=== PATIENT | male | born 1970 | race Caucasian/White ===

== ENCOUNTER 2023-08-12 12:52 | Emergency (ER) | payer BC, SELFPAY ==
[2023-08-12 12:54] VITALS: BP 140/100
[2023-08-12 14:17] VITALS: BP 143/103
[2023-08-12 14:32] VITALS: BP 143/103; BMI 31.4
[2023-08-12 14:38] LABS: % Basophils 0.5 % (0-2); % Eosinophils 1.1 % (0-6); % Immature Granulocytes 0.4 % (0-0.5); % Lymphocytes 9.4 % (20.5-51.1); % Monocytes 7.7 % (1.7-9.3); % Neutrophils 80.9 % (42.2-75.2); Absolute Basophils 0.1 10^3/uL (0-0.2); Absolute Eosinophils 0.1 10^3/uL (0-0.7); Absolute Monocytes 0.8 10^3/uL (0.1-0.6); Absolute Neutrophils 8.7 10^3/uL (1.4-6.5); Hematocrit 44.1 % (39.0-52.0); Hemoglobin 15.7 g/dL (13.0-18.0); Mean Corp Hgb Conc. 35.6 g/dL (33.0-37.0); Mean Corpuscular Hgb 29.6 pg (27.0-31.0); Mean Corpuscular Volume 83.2 fL (80.0-94.0); Mean Platelet Volume 11.2 fL (7.4-10.4); Nucleated Red Blood Cells % 0 % (-); Platelet Count 196 10^3/uL (130-400); Red Cell Dist. Width 12.8 % (11.5-14.5); White Blood Cell Count 10.7 10^3/uL (4.8-10.8)
--- NOTE | 2023-08-12 14:40 | ED.GENMED ---
History of Present Illness
General
Chief Complaint: Skin Problem
Time Seen by Provider: 08/12/23 14:40
Travel History
Have you had any contact with someone who has COVID-19?: No
Do you have any symptoms of coronavirus? Fever > 100 degrees, chills, cough, shortness of breath, sore throat, loss of taste or smell, muscle aches, or headache?: No
History of Present Illness
History of Present Illness:
HPI: Patient had chills that started 4 nights ago. He could not get comfortable at home. He later developed some discomfort in the right shoulder/right humerus region. There was no trauma. He has been having increased pain with movement of the
right upper extremity. He denies any significant past medical history including diabetes.
EXAM:
GENERAL: Well appearing in no distress
HEENT: Moist oral mucosa
CARDIOVASCULAR: No murmurs, normal heart rate and rhythm, No chest wall tenderness
PULMONARY: No respiratory distress, breath sounds are clear and equal
ABDOMEN: Soft with no peritoneal signs, no tenderness
NEUROLOGIC: Excellent strength all extremities, no coordination deficits
PSYCHIATRIC: Appropriate mental status, normal insight and judgement
EXTREMITIES: There is decreased active range of motion at the right upper extremity at the shoulder more so than at the elbow
SKIN: Irregular patch of warmth and erythema to the posterior lateral aspect of the mid right humerus region
ED COURSE:
2:50 PM: I initially evaluated patient
NUMBER AND COMPLEXITY OF PROBLEMS ADDRESSED AT THE ENCOUNTER
� Chronic conditions affecting care: Has had a colon resection in the past, diverticulitis, high blood pressure, denies diabetes
� Acute Exacerbation and/or Progression of Chronic Illness: This is an acute problem
� Differential Diagnosis includes: Cellulitis, sepsis/bacteremia unlikely, osteomyelitis unlikely
AMOUNT AND/OR COMPLEXITY OF DATA TO BE REVIEWED AND ANALYZED
� I performed an independent evaluation of and my interpretation is:
EKG:
CT:
X-rays: Right humerus x-ray personally viewed and shows no acute abnormality including no evidence of osteomyelitis
Laboratory Studies: The white count is top normal at 10.7, lactic acid is reassuring at 0.6, other chemistries unremarkable
Other:
� Review of other/old records: The patient was admitted here in 2020 with colostomy due to diverticulitis
� Clinical information was obtained by an independent historian: None needed
� Prescriptions/Medications Considered but not given:
� Further testing considered but not performed:
RISK OF COMPLICATIONS AND/OR MORBIDITY OR MORTALITY OF PATIENT MANAGEMENT
� Social determinants of health affecting care: Lives at home
� Discussion with other providers:
� Escalation of care including admission/observation vs risk of discharge considered: The patient does have evidence of cellulitis to the proximal right upper extremity. Will give IV antibiotics. Blood work is also obtained.
The patient is well-appearing with excellent mental status on reassessment. Heart rate did come down to the 80s on the monitor on my reevaluation at 4:40 PM. Since he has associated with shoulder discomfort, [facility] orthopedics (has been
there in the past)
Past History
Past History
ED Past Medical History: None
ED Past Surgical History: Appendectomy
Social History
Tobacco: Non-smoker
Alcohol: None
Drug: None
Personal:
Living: with family
Phy Exam
Physical Exam
Physical Exam:
See HPI
Course
Orders/Labs/Results
Orders:
Orders
08/12/23 13:43
Cardiac Monitoring- Treatment ONCE
08/12/23 14:13
Complete Blood Count/With Diff Urgent
Comprehensive Metabolic Panel Urgent
Lactic Acid Urgent
Blood Culture Q30M
[facility] Source: Blood/Venous
Specimen Description:
Date Specimen was Collected: 08/12/23
Time Specimen was Collected: 13:43
08/12/23 14:50
Blood Culture Q30M
[facility] Source: Blood/Venous
Specimen Description:
Date Specimen was Collected: 08/12/23
Time Specimen was Collected: 13:43
08/12/23 14:51
CR Humerus - Right Min 2 View* Urgent
Comment:
Reason For Exam: pain overlying cellulitis; eval for osteo
08/12/23 14:52
0.9% Sodium Chloride 1000 ml [Nss] 1,000 ml IV BOLUS
Ketorolac [Toradol] 15 mg IV NOW STA
08/12/23 16:00
CeFAZolin 2 GRAM [Ancef] 2 grams in 10 ml IV NOW
Abnormal Lab Results
08/12/23
14:13
MPV 11.2 H fL
(7.4-10.4)
Absolute Neuts (auto) 8.7 H 10^3/uL
(1.4-6.5)
Absolute Lymphs (auto) 1.0 L 10^3/uL
(1.2-3.4)
Absolute Monos (auto) 0.8 H 10^3/uL
(0.1-0.6)
Neutrophils % 80.9 H %
(42.2-75.2)
Lymphocytes % 9.4 L %
(20.5-51.1)
BUN 21 H mg/dl
(9-20)
Lactic Acid 0.6 L mmol/L
(0.7-2.0)
08/12/23 14:13
08/12/23 14:13
Vital Signs
Initial and Last Documented VS:
Initial Vital Signs
Temp Pulse Resp BP Pulse Ox
98.2 F 110 16 140/100 98
08/12/23 12:54 08/12/23 12:54 08/12/23 12:54 08/12/23 12:54 08/12/23 12:54
Last Documented Vital Signs
Temp Pulse Resp BP Pulse Ox
99.2 F 84 20 140/101 94
08/12/23 14:32 08/12/23 16:42 08/12/23 16:42 08/12/23 16:42 08/12/23 16:42
*Critical Care Note
Total Time (30-74mins, 75-104mins- exclusive of procedures): Not Applicable
ED Attending Note
-
Portions of this chart may have been created with voice recognition software.� Occasional wrong word or��sound alike� substitutions may have occurred due to the inherent limitations of voice recognition software.
Discharge Plan
Departure
Patient Disposition: Home (Routine Discharge)
Date of Disposition: 08/12/23
Time of Disposition: 16:41
Patient with high blood pressure during this ER visit?: Yes
Discharge Problem:
Cellulitis
Instructions: Cellulitis (Skin Infection), Adult (DC), BLOOD PRESSURE
Prescriptions:
New
cephalexin 500 mg capsule
500 mg PO TID Qty: 21 0RF
No Action
multivitamin with folic acid [Tab-A-Edie] 1 TABLET tablet
1 tab PO DAILY
amlodipine-benazepril 1 EACH capsule
5 - 10 mg PO DAILY
omega 9-kvl-[id number]-fish oil [Fish Oil] 1 EACH capsule
1 ea PO DAILY
Tumeric
1,500 mg PO DAILY
hydrocodone-acetaminophen 1 TABLET tablet
1 tab PO Q4HPRN PRN (Reason: moderate to severe pain) Qty: 25 0RF
Referrals:
Iam Curtis DO [Family Provider] -
Jesus Velazquez MD [Active] - Follow up in 2-3 days
Activity Restrictions/Additional Instructions:
Your white blood cell count is within the normal range at 10.7, lactic acid level is 0.6 which is normal making sepsis less likely. The x-ray of the humerus was unremarkable. I recommend that you follow-up with orthopedics. Use sling for comfort.
Interventions
Interventions:
*Risk Screen - Suicide Last Done: 08/12/23 14:32
*General Assessment Last Done: 08/12/23 14:32
*Neglect/Abuse Screening Last Done: 08/12/23 14:32
ED- Fall Risk Assessment Last Done: 08/12/23 14:32
*ED COVID-19 Vaccine History Last Done: 08/12/23 12:54
ED-Skin Assessment Last Done: 08/12/23 14:32
[2023-08-12 14:48] LABS: ALT (SGPT) 23 U/L (0-50); AST (SGOT) 25 U/L (17-59); Albumin 4.7 g/dl (3.5-5.0); Alkaline Phosphatase 63 U/L (38-126); Blood Urea Nitrogen 21 mg/dl (9-20); Calcium 9.7 mg/dl (8.4-10.2); Carbon Dioxide 26 mmol/L (22-30); Chloride 102 mmol/L (98-107); Estimated Creatinine Clearance 83 ml/min; Glucose 94 mg/dl (70-99); Lactic Acid 0.6 mmol/L (0.7-2.0); Potassium 4.1 mmol/L (3.5-5.1); Sodium 136 mmol/L (135-145); Total Bilirubin 0.8 mg/dl (0.2-1.3); Total Protein 7.7 g/dl (6.3-8.2); eGFR > 60.00
--- NOTE | 2023-08-12 15:05 | EDRN ---
Dr. Rubin in to see pt.
[2023-08-12 15:45] VITALS: BP 151/99
[2023-08-12 16:00] VITALS: BP 142/98
[2023-08-12] MEDS: TORADOL 15 MG IV (16:02)
[2023-08-12] MEDS: NSS 1000 IV (16:03)
[2023-08-12] MEDS: ANCEF 10 IV (16:39)
--- NOTE | 2023-08-12 16:40 | EDRN ---
Dr. Rubin in room w/pt at this time.
[2023-08-12 16:42] VITALS: BP 140/101
--- NOTE | 2023-08-12 16:47 | WOUNDNOTE ---
WOUND/Care Note: Pt identified by name and .
R upper arm
R upper arm
R upper arm
R upper arm
== END 2023-08-12 17:36 | disposition home or self-care (01) ==
LOC: EMR 12:52
PROVIDERS: Emergency Medicine; EMERGENCY PHYSICIAN Emergency Medicine; FAMILY PHYSICIAN Internal Medicine
DX: L03.90 Cellulitis, unspecified (principal)
CPT/HCPCS: 99283; 96374; 96375; 96361; 73060; 80053; 83605; 85025; 87040

== ENCOUNTER → 2023-10-17 06:24 | Day surgery (SDC) | payer BC, SELFPAY | LOC: GI 06:24 | PROVIDERS: ATTENDING PHYSICIAN Surgery | DX: Z12.11 Encounter for screening for malignant neoplasm of colon (principal); Z86.010 Personal history of colon polyps; Z98.0 Intestinal bypass and anastomosis status; D12.2 Benign neoplasm of ascending colon | CPT/HCPCS: 45380; 88305 ==